=== PATIENT | male | born 1985 | race Caucasian/White ===

== ENCOUNTER 2016-05-15 15:52 | Emergency (ER) | payer SELFPAY ==
--- NOTE | ~2016-05-15 | EKG ---
PATIENT: CHARLY CASTAÑEDA UNIT #: [id number] Ventricular Rate: 126 BPM Atrial Rate: 126 BPM P-R Interval: 144 ms QRS Duration: 100 ms Q-T Interval: 310 ms QTC Calculation(Bezet): 448 ms P [place]: 67 degrees Calculated R [place]: 98 degrees Calculated T [place]: 49 degrees Diagnosis Line: Sinus tachycardia Diagnosis Line: Rightward axis Diagnosis Line: Incomplete right bundle branch block Diagnosis Line: Borderline ECG Diagnosis Line: Diagnosis Line: Confirmed by ADELINA ROSA MD ([id number]) on 05/19/2016 Diagnosis Line: 10:36:01 PM INTERPRETING MD: MOE SORENSON
[2016-05-15 14:28] LABS: URINE SOURCE CLEAN CATCH
[2016-05-15 14:37] LABS: BASOPHIL% 0.3 % (0-2.5); EOSINOPHIL% 0.3 % (0.0-7.0); HEMATOCRIT 40.8 % (38.0-50.0); HEMOGLOBIN 13.2 gm/dL (13.0-16.0); LYMPHOCYTE# 1.5 X10e3 (1.0-3.5); LYMPHOCYTE% 17.1 % (17.0-45.0); MEAN CELL VOLUME 87.7 FL (83-96); MEAN CORPUSCULAR HEMOGLOBIN 28.4 PG (28-34); MEAN CORPUSCULAR HGB CONC 32.4 g/dL (30-36); MEAN PLATELET VOLUME 7.6 FL (6.5-11.5); MONOCYTE# 0.6 X10e3 (0-1.0); MONOCYTE% 6.8 % (3.0-12.0); NEUTROPHIL# 6.6 X10e3 (1.5-7.1); NEUTROPHIL% 75.5 % (40-75); PLATELET COUNT 245 X10e3 (140-420); RED BLOOD COUNT 4.66 X10e (3.90-5.60); RED CELL DISTRIBUTION WIDTH 14.5 % (11.0-15.5); WHITE BLOOD COUNT 8.8 X10e3 (4.0-10.5)
[2016-05-15 14:41] LABS: URINE APPEARANCE CLEAR; URINE BILIRUBIN NEG (NEG); URINE BLOOD TRACE (NEG); URINE COLOR YELLOW; URINE GLUCOSE NEG (NEG); URINE KETONE NEG (NEG); URINE LEUKOCYTE ESTERASE NEG (NEG); URINE NITRATE NEG (NEG); URINE PH 5.5 (5-8); URINE PROTEIN TRACE (NEG); URINE UROBILINOGEN 0.2 MG/DL (NEG)
[2016-05-15 14:41] LABS: DIFF IND NO
[2016-05-15 14:44] LABS: URBCS1 AUWI 0-2 /[HPF] (0-2); URINE BACTERIA AUWI NEG (NEGATIVE); URINE SQUAMOUS EPITHELIAL CELL NONE SEEN /[HPF]
[2016-05-15 14:46] LABS: POC - TROPONIN <0.05 ng/mL (<=0.05)
[2016-05-15 14:48] LABS: URINE SPERM PRESENT
[2016-05-15 15:03] LABS: ALBUMIN SERUM 4.4 g/dL (3.5-5.0); BILIRUBIN, DIRECT 0.1 mg/dL (0.0-0.2); BILIRUBIN,INDIRECT 0.3 mg/dL (0.0-0.9); BILIRUBIN,TOTAL 0.4 mg/dL (0.2-2.0); CALCIUM SERUM 9.2 mg/dL (8.4-10.2); CREATININE SERUM 0.8 mg/dL (0.6-1.4); GLOM FILT RATE Estimated 120.8 mL/min (>60); POTASSIUM 3.9 mmol/L (3.5-5.1); PROTEIN TOTAL SERUM 7.7 g/dL (6.0-8.3)
[2016-05-15 15:44] LABS: AMPHETAMINE NEG (NEG); BARBITURATES NEG (NEG); BENZODIAZEPINES NEG (NEG); COCAINE NEG (NEG); MARIJUANA POS (NEG); OPIATES POS (NEG); TRICYCLIC ANTIDEPRESSANTS NEG (NEG); U METHADONE NEG (NEG)
[~2016-05-15 15:52] MED LIST: ALBUTEROL HFA INH; AMOXICILLIN PO; AUGMENTIN875 M1; BACTRIM DS TABL1 TA1; BACTRIM DS TABL1 TA1 PO; BACTRIM DS TABL1 TA2; CIPRO PO; DARVOCET-N 1001 TAB; DARVOCET-N 1001 TAB PO; DOXYCYCLINE HY100 M1 PO; DOXYCYCLINE MO100 MG PO; FLEXERIL PO; FLOMAX0.4 M1 PO; HYDROCODON-ACE1 EAC9 PO; LORTAB 10-5001 EACH PO; METHADONE PO; NEURONTIN; NEURONTIN300 MG PO; NO MEDICATIONS; NORCO 10-325 TA1 TAB PO; PENICILLIN; PHENERGAN25 M1 PO; PREDNISONE PO; ST. JOSEPH ASPI81 M3 PO; SUBUTEX2 MG PO; TAMIFLU75 MG PO; TORADOL10 MG PO; TYLENOL #3 PO; TYLENOL325 M1 PO; ULTRAM PO; VIBRAMYCIN100 M1 PO; VICODIN 5/500 T1 TAB PO; ZITHROMAX PO; ZOFRAN ODT4 MG PO
[2016-05-15 16:29] LABS: POC - CKMB 1.4 ng/mL (0.0-7.9); POC - TROPONIN <0.05 ng/mL (<=0.05)
== END 2016-05-15 17:15 | disposition home or self-care (01) ==
LOC: CED 15:52
PROVIDERS: Emergency Medicine
DX: F11.129 Opioid abuse with intoxication, unspecified (principal); F12.10 Cannabis abuse, uncomplicated; R00.0 Tachycardia, unspecified; F17.200 Nicotine dependence, unspecified, uncomplicated
CPT/HCPCS: 36415; 80048; 80076; 80307; 81003; 82550; 82553; 84484; 85025; 85379; 93005; 96360; 99284